=== PATIENT | female | born 1990 ===

== ENCOUNTER 2020-09-08 17:43 | Emergency (ER) | payer SELFPAY ==
[2020-09-08 20:07] VITALS: BP 124/85
--- NOTE | 2020-09-08 20:31 | Event Note ---
ED Screening Note Date of service: 09/08/20 Time: 20:29 ED Screening Note: 29 y o female presents with vaginal bleed x 5 days states Tampon stuck in Vagina PMH: Endomertriosis This initial assessment/diagnostic orders/clinical plan/treatment(s) is/are subject to change based on patients health status, clinical progression and re- assessment by fellow clinical providers in the ED. Further treatment and workup at subsequent clinical providers discretion. Patient/guardian urged not to elope from the ED as their condition may be serious if not clinically assessed and managed. Initial orders include: Pt refusing labs FT for foreign body removal.
== END 2020-09-09 00:15 | disposition left against medical advice (07) ==
LOC: ED 17:43
DX: N93.9 Abnormal uterine and vaginal bleeding, unspecified (principal); Z53.21 Procedure and treatment not carried out due to patient leaving prior to being seen by health care provider

== ENCOUNTER 2021-03-11 22:08 | Emergency (ER) | payer SELFPAY | END 2021-03-11 22:13 | disposition left against medical advice (07) | LOC: ED 22:08 ==